=== PATIENT | male | born 1960 | race Caucasian/White ===

== ENCOUNTER 2022-08-11 08:19 | Emergency (ER) | payer SELFPAY ==
[2022-08-11] VITALS (10 sets, daily range): BP systolic 155–231; BP diastolic 83–150; PULSE 61–97; RESP 15–23; TEMP 35.5–36.1; O2SAT 98–100; BMI 34.4
--- NOTE | 2022-08-11 08:31 | NURSING ---
NO OLD EKGS
--- NOTE | 2022-08-11 08:32 | CT_ITS ---
We are attempting to reach an attending provider to discuss findings. An addendum with communication details will be sent when the communication is complete. EXAM: CT HEAD WITHOUT INTRAVENOUS CONTRAST CLINICAL INDICATION: AMS TECHNIQUE: Multiple axial images were obtained of the head without intravenous contrast. This CT exam was performed using one or more of the following dose reduction techniques: automated exposure control, adjustment of the mA and/or kV according to patient size, and/or use of iterative reconstruction technique. This report was created using [employer] report [employer] technology. COMPARISON: None. FINDINGS: BRAIN AND EXTRA-AXIAL SPACES: 5.8 cm hemorrhage noted with epicenter within the left basal ganglia associated with midline shift to the right of 18 mm. Hemorrhage extends into dilated lateral ventricles as well as into the third and fourth ventricles. The subfalcine herniation results in obstructive hydrocephalus of the lateral ventricles. There is preservation of the mckinnon/white matter interface. BONES/JOINTS: No suspicious lytic or blastic abnormality. SINUSES: No acute sinusitis. MASTOID AIR CELLS: Normal. Clear. ORBITS: Visualized globes, extraocular muscles, optic nerves and retrobulbar fat appear unremarkable. CT/Brain/Head without Contrast IMPRESSION: Large left basal ganglion hemorrhage with extensive involvement of the ventricles. Marked subfalcine herniation with midline shift to the right of 18 mm resulting in obstructive hydrocephalus. Electronically Signed: Giovanni Desai MD at 9:22 EST ,
--- NOTE | 2022-08-11 08:34 | RAD_ITS ---
EXAM: XR CHEST, 1 VIEW CLINICAL INDICATION: Intubation TECHNIQUE: Frontal view of the chest. This report was created using [employer] report generation technology. COMPARISON: None. FINDINGS: LUNGS AND PLEURAL SPACES: Mild airspace opacification within the right upper lobe may represent pneumonia or aspiration. No pneumothorax. No effusion. HEART: Heart is normal size. MEDIASTINUM: No mediastinal or hilar mass. BONES/JOINTS: No acute abnormality. SOFT TISSUES: Normal. VASCULATURE: Aorta is ectatic and tortuous. TUBES, LINES AND DEVICES: The endotracheal tube (ETT) is in satisfactory position with tip 4.6 cm above the fahad. Enteric tube tip is not seen but is below the diaphragm. RAD/Chest 1 View (Portable) IMPRESSION: Satisfactory ET tube placement. Small focus of pneumonia/aspiration right upper lobe of the lung. Electronically Signed: Giovanni Desai MD at 9:28 EST ,
--- NOTE | 2022-08-11 08:34 | RAD_ITS ---
EXAM: XR ABDOMEN, 1 VIEW CLINICAL INDICATION: NG Insertion TECHNIQUE: Frontal supine view of the abdomen/pelvis. This report was created using [employer] report generation technology. COMPARISON: None. FINDINGS: GASTROINTESTINAL TRACT: Prominent gaseous distention of the stomach likely related to intubation. ORGANS: No organomegaly. BONES/JOINTS: Question small bilateral renal stones. SOFT TISSUES: No pathological calcification. TUBES, LINES AND DEVICES: Enteric tube extends into the stomach. RAD/Abdomen Single View (Portable) IMPRESSION: Gastric distention related to intubation. Satisfactory endogastric tube placement. Electronically Signed: Giovanni Desai MD at 9:30 EST ,
--- NOTE | 2022-08-11 08:35 | EX.ED.DYSGE1 ---
HPI History of Present Illness Chief Complaint: Unresponsive Informant: EMS Narrative Narrative: Patient is a 61-year-old male with unknown medical history presenting from home for unresponsive. Patient was found on the bathroom floor. Apparently he lives with friends in the basement. He was last seen about 20 hours prior to arrival. He was found on the bathroom floor, unresponsive with a bleeding head wound in the back. EMS transferred patient here. Per EMS patient's blood sugar was 192. They did not notice any spontaneous movement. They immediately put him on a nonrebreather and has been 98% with spontaneous respirations. PFSH PFSH Social History Smoking Status: Unknown if ever smoked ROS ROS ED Review of Systems ROS Unobtainable: due to mental status EXAM Physical Exam Const Vital Signs: 08/11/22 08:20 08/11/22 08:25 08/11/22 08:54 Temperature 96.4 F L 96 F L Temperature Source Temporal Core Pulse Rate 97 61 Respiratory Rate 22 H 15 Respiratory Pattern Blood Pressure 231/137 H 183/112 H Blood Pressure Mean 168 135 Blood Pressure Source Blood Pressure Position Blood Pressure Location Pulse Ox 99 98 99 Oxygen Delivery Method Non-Rebreather Non-Rebreather Mechanical Ventilator Oxygen Flow Rate (L/min) 15 08/11/22 09:26 08/11/22 09:28 08/11/22 10:08 Temperature 96.8 F L Temperature Source Core Pulse Rate 65 66 Respiratory Rate 21 H 19 H Respiratory Pattern Blood Pressure 227/150 H 194/117 H Blood Pressure Mean 175 142 Blood Pressure Source Monitor Blood Pressure Position Supine Blood Pressure Location Right Arm Pulse Ox 100 99 99 Oxygen Delivery Method Mechanical Ventilator Mechanical Ventilator Mechanical Ventilator Oxygen Flow Rate (L/min) 08/11/22 10:19 08/11/22 10:28 08/11/22 08:29 Temperature 96.7 F L 96.9 F L Temperature Source Core Core Pulse Rate 69 75 71 Respiratory Rate 19 H 19 H 23 H Respiratory Pattern Normal Blood Pressure 181/100 H 165/92 H Blood Pressure Mean 127 116 Blood Pressure Source Monitor Blood Pressure Position Blood Pressure Location Pulse Ox 99 99 98 Oxygen Delivery Method Mechanical Ventilator Mechanical Ventilator Oxygen Flow Rate (L/min) Positive well nourished and well developed Constitutional Narrative: Acute distress, dried vomit on his face General Appearance ED: well developed HEENT Reports dry mucous membranes trauma Mouth ED: Yes dry mucous membranes Mouth: dry mucous membranes Eyes Eyes Narrative: Unequal pupils. Right pupil is 2 mm, minimally reactive. Left pupil is 3 mm and nonreactive Neck Neck Narrative: C-collar in place. No obvious deformity. Chest Wall inspection of chest normal Resp Resp Narrative: Slight tachypnea, clear breath sounds throughout. Cardio regular rate, regular rhythm and no murmurs GI normal to inspection, nondistended, normoactive bowel sounds Extremity Extremity Narrative: No obvious deformity. Pelvis is stable. Neuro Neuro Narrative: Patient intermittently will posterior the upper extremities with stimuli from intubation and IV. Nurses report that he did move his legs when Moon catheter was placed. [place] Coma Scale: document GCS findings None Extensor Response Incomprehensible 5 Skin Skin Narrative: Abrasion to the right knee. Abrasion to the left fifth toe. Abrasion to the posterior scalp. MDM MDM MDM Narrative Medical decision making narrative: Patient evaluated after found unresponsive on the ground. He has unequal pupils. GCS is 5 so airway secured with intubation prior to going over to imaging. He does not seem to be lateralizing with his neurologic exam except for the uneven pupils. See procedure note for intubation. Differential includes intracranial hemorrhage, ischemic stroke, rhabdomyolysis, head trauma encephalopathy. Patient is given 2 mg IV Narcan with no improvement of symptoms. Glucose was normal per EMS. Patient does have a leukocytosis, elevated CK, and elevation of his creatinine (unknown baseline) and an elevated troponin. He does not have acute ischemic/ACS changes however he does have some slight abnormalities in his T waves (biphasic) in V3. CT of the brain interpreted by myself as well as radiology does show basal ganglia on hemorrhage with ventricular extension as well as obstructing hydrocephalus and 18 mm shift to the right. [facility] transfer line is contacted and patient accepted as a trauma transfer to [facility] emergency room. Case discussed with transfer line, critical care transfer and accepting ER physician, Dr. Parker. Patient is ordered mannitol and is also administered hydralazine and placed on a Cardene drip for blood pressure control as well as signs of cerebral herniation. Tetanus is updated in the emergency room. Patient is given a liter of IV fluid. Lab Data Attestation: I reviewed the patient's lab results. Labs: Laboratory Results - last 24 hr 08/11/22 08/11/22 08/11/22 08:35 08:35 08:35 WBC 23.7 H RBC 5.40 Hgb 17.8 H Hct 51.3 MCV 95.0 H MCH 33.0 H MCHC 34.7 RDW Std Deviation 45.3 H RDW Coeff of Rachel 12.9 Plt Count 241 MPV 10.7 Immature Gran % (Auto) 0.500 Neut % (Auto) 87.0 H Lymph % (Auto) 4.2 L Taylor % (Auto) 8.2 Eos % (Auto) 0.0 Baso % (Auto) 0.1 Absolute Neuts (auto) 20.7 H Absolute Lymphs (auto) 0.99 Nucleated RBC % 0 Differential Comment SCANNED Diff Path Review May foll PT 13.9 INR 1.1 APTT 28.4 Sodium 140 Potassium 3.0 L Chloride 101 Carbon Dioxide 27.0 Anion Gap 12 BUN 20 H Creatinine 1.69 H Estim Creat Clear Calc 48.27 Est GFR (MDRD) Af Amer 53 L Est GFR (MDRD) Non-Af 44 L BUN/Creatinine Ratio 11.8 Glucose 141 H Lactic Acid Calcium 9.4 Total Bilirubin 0.90 AST 71 H ALT 29 Alkaline Phosphatase 88 Total Creatine Kinase 2310 H Troponin I High Sens 1214 H* Total Protein 8.2 Albumin 3.6 Globulin 4.6 H Albumin/Globulin Ratio 0.8 L Triglycerides Lipase 90 Urine Color Urine Clarity Urine pH Ur Specific [place] Urine Protein Urine Glucose (UA) Urine Ketones Urine Occult Blood Urine Nitrite Urine Bilirubin Urine Urobilinogen Ur Leukocyte Esterase Urine RBC Urine WBC Ur Squamous Epith Cells Urine Bacteria Urine Mucus Urine Opiates Screen Urine Methadone Screen Ur Barbiturates Screen Ur Phencyclidine Scrn Ur Amphetamines Screen MDMA (Ecstasy) Screen U Benzodiazepines Scrn Urine Cocaine Screen U Cannabinoids Screen Ur Drug Screen Comment Ethyl Alcohol 08/11/22 08/11/22 08/11/22 08:35 08:35 08:35 WBC RBC Hgb Hct MCV MCH MCHC RDW Std Deviation RDW Coeff of Rachel Plt Count MPV Immature Gran % (Auto) Neut % (Auto) Lymph % (Auto) Taylor % (Auto) Eos % (Auto) Baso % (Auto) Absolute Neuts (auto) Absolute Lymphs (auto) Nucleated RBC % Differential Comment Diff Path Review PT INR APTT Sodium Potassium Chloride Carbon Dioxide Anion Gap BUN Creatinine Estim Creat Clear Calc Est GFR (MDRD) Af Amer Est GFR (MDRD) Non-Af BUN/Creatinine Ratio Glucose Lactic Acid 5.8 H* Calcium Total Bilirubin AST ALT Alkaline Phosphatase Total Creatine Kinase Troponin I High Sens Total Protein Albumin Globulin Albumin/Globulin Ratio Triglycerides 70 Lipase Urine Color Urine Clarity Urine pH Ur Specific [place] Urine Protein Urine Glucose (UA) Urine Ketones Urine Occult Blood Urine Nitrite Urine Bilirubin Urine Urobilinogen Ur Leukocyte Esterase Urine RBC Urine WBC Ur Squamous Epith Cells Urine Bacteria Urine Mucus Urine Opiates Screen Urine Methadone Screen Ur Barbiturates Screen Ur Phencyclidine Scrn Ur Amphetamines Screen MDMA (Ecstasy) Screen U Benzodiazepines Scrn Urine Cocaine Screen U Cannabinoids Screen Ur Drug Screen Comment Ethyl Alcohol < 3.0 08/11/22 08/11/22 08:42 08:42 WBC RBC Hgb Hct MCV MCH MCHC RDW Std Deviation RDW Coeff of Rachel Plt Count MPV Immature Gran % (Auto) Neut % (Auto) Lymph % (Auto) Taylor % (Auto) Eos % (Auto) Baso % (Auto) Absolute Neuts (auto) Absolute Lymphs (auto) Nucleated RBC % Differential Comment Diff Path Review PT INR APTT Sodium Potassium Chloride Carbon Dioxide Anion Gap BUN Creatinine Estim Creat Clear Calc Est GFR (MDRD) Af Amer Est GFR (MDRD) Non-Af BUN/Creatinine Ratio Glucose Lactic Acid Calcium Total Bilirubin AST ALT Alkaline Phosphatase Total Creatine Kinase Troponin I High Sens Total Protein Albumin Globulin Albumin/Globulin Ratio Triglycerides Lipase Urine Color Yellow Urine Clarity Sl. Cloudy Urine pH 6.5 Ur Specific [place] 1.015 Urine Protein 500 H Urine Glucose (UA) Normal Urine Ketones 15 H Urine Occult Blood 250 H Urine Nitrite Negative Urine Bilirubin Negative Urine Urobilinogen Normal Ur Leukocyte Esterase Negative Urine RBC 25-50 SEEN Urine WBC 0 SEEN Ur Squamous Epith Cells 0 SEEN Urine Bacteria 0 SEEN Urine Mucus 0 SEEN Urine Opiates Screen NEGATIVE Urine Methadone Screen NEGATIVE Ur Barbiturates Screen NEGATIVE Ur Phencyclidine Scrn NEGATIVE Ur Amphetamines Screen NEGATIVE MDMA (Ecstasy) Screen NEGATIVE U Benzodiazepines Scrn NEGATIVE Urine Cocaine Screen NEGATIVE U Cannabinoids Screen NEGATIVE Ur Drug Screen Comment Ethyl Alcohol ABG Data ABG results: ABG 08/11/22 09:02 Specimen Type ART Sample Site L Brach pH 7.38 Bicarbonate Actual 25.8 Total CO2 27 Base Excess 1 O2 Saturation 97 O2 % 40 ABG pCO2 43.6 ABG pO2 98 Respiration Rate 14 O2 Delivery Device Adult Vent Vent Mode PRVC/PS Tidal Volume 450 POC PEEP 5 Radiography Diagnostic Testing: Clinical Impression(s) from Imaging Studies Brain CT 08/11/22 08:32 IMPRESSION: Large left basal ganglion hemorrhage with extensive involvement of the ventricles. Marked subfalcine herniation with midline shift to the right of 18 mm resulting in obstructive hydrocephalus. Electronically Signed: Giovanni Desai MD at 9:22 EST , ADDENDUM: 08/11/22 0929 IMPRESSION: Large left basal ganglion hemorrhage with extensive involvement of the ventricles. Marked subfalcine herniation with midline shift to the right of 18 mm resulting in obstructive hydrocephalus. N.B. : The above Results were Read Back by Giovanni Desai MD to Priscila Meza MD, and understanding confirmed on 08/11/2022 09:22:26 (ET). Electronically Signed: Giovanni Desai MD at 9:22 EST , Chest X-Ray 08/11/22 08:34 IMPRESSION: Satisfactory ET tube placement. Small focus of pneumonia/aspiration right upper lobe of the lung. Electronically Signed: Giovanni Desai MD at 9:28 EST , KUB X-Ray 08/11/22 08:34 IMPRESSION: Gastric distention related to intubation. Satisfactory endogastric tube placement. Electronically Signed: Giovanni Desai MD at 9:30 EST , Foot X-Ray 08/11/22 08:38 IMPRESSION: Healing fractures of the proximal and distal phalanges of the fifth toe. Marked osteoarthritic changes. Electronically Signed: Teto Dunbar, at 9:39 EST , Procedures Intubations Intubation Method: orotracheal (8-0 ET tube. Medicated with 20 mg of etomidate.) Intubation Verification: Positive color change Intubation Complications: no complications Critical Care Time Critical Care Time: Yes Critical care time (excluding procedures): 30-74 minutes (45), Discussing w/Consultants, Arranging Admission or Transfer and Performing Direct Patient Care at Bedside Discharge Plan Triage Chief Complaint: Unresponsive ED Provider: Priscila Meza Dx/Rx/DC Orders Clinical Impression: Intracranial hemorrhage, Acute non-ST elevation myocardial infarction (NSTEMI), Rhabdomyolysis, Creatinine elevation Primary Care Provider: Care Physician,No Primary Referrals: Care Physician,No Primary [Primary Care Provider] - Disposition Disposition: Acute Care Hospital Discharge Location: [facility]
--- NOTE | 2022-08-11 08:38 | RAD_ITS ---
STUDY: X-RAY - LEFT FOOT CLINICAL: Male, 61 years old. Trauma. Pain. TECHNIQUE: 3 view(s) of the foot. COMPARISON: None. FINDINGS: Osteopenia. Superior calcaneal spur. Mild arthrosis of the tibiotalar joint. Mild arthrosis of the subtalar joint. Mild arthrosis of the midfoot. [id number] arthrosis of the MTP and IP joints with marked hammertoe deformities. Healing fractures of the proximal and distal phalanges of the fifth toe. Lateral soft tissue swelling. Ossification of the proximal plantar fascia. RAD/Foot min 3 Views IMPRESSION: Healing fractures of the proximal and distal phalanges of the fifth toe. Marked osteoarthritic changes. Electronically Signed: Teto Dunbar, at 9:39 EST ,
[2022-08-11] MEDS: 0.9% Normal Saline 1,000 ML 1000 ML IV (08:48)
[2022-08-11] MEDS: Etomidate 20 MG/10 ML Vial IV (08:48)
[2022-08-11] MEDS: Diphth,Pertuss(Acell),Tet Vac 0.5 ML Vial IM (08:52)
[2022-08-11 08:53] LABS: Bacteria 0 SEEN /hpf (None Seen); Mucous, Urine 0 SEEN /hpf (<or=2+); Squamous Epithelial Cells - UA 0 SEEN /hpf (0-5); White Blood Cells 0 SEEN /hpf (0-5)
[2022-08-11 08:57] LABS: Absolute Lymphocyte Count 0.99 X10^3/uL (0.83-4.51); Absolute Neutrophil Count 20.7 X10^3/uL (2.0-7.7); Basophil# 0.03 X10^3/uL; Basophil% 0.1 % (0-1); Hematocrit 51.3 % (40-54); Hemoglobin 17.8 g/dL (13.0-16.5); Lymphocyte # 0.99 X10^3/ul (0.83-4.51); Lymphocyte % 4.2 % (19-41); Mean Corp Hgb Conc 34.7 g/dL (32-36); Mean Platelet Vol. 10.7 fl (6.2-12.0); Monocyte# 1.95 X10^3/uL; Monocyte% 8.2 % (0-10); NRBC Flagged by Analyzer 0 % (0-5); Neutrophil # 20.65 X10^3/uL (2.7-7.7); POSITIVE DIFFERENTIAL YES; Platelet Count 241 K/mm3 (150-450); RBC Distribution Width CV 12.9 % (11.6-14.6); RBC Distribution Width SD 45.3 fl (35.1-43.9); White Blood Count 23.7 K/mm3 (4.4-11.0)
[2022-08-11 08:57] LABS: Color, Urine Yellow (Yellow); Glucose, Dipstick Normal (Normal); Ketone-Dipstick 15 mg/dl (Negative); Leukocyte Esterase-Dipstick Negative /ul (Negative); Nitrite-Dipstick Negative (Negative); Occult Blood-Urine 250 /ul (Negative); Protein-Dipstick 500 mg/dl (Negative); Specific Gravity, Urine 1.015 (1.002-1.030); Urine Bilirubin Dipstick Negative (Negative); Urine Clarity Sl. Cloudy (Clear); Urine Urobilinogen Normal (Normal); Urine pH 6.5 (5.0 - 8.0)
[2022-08-11 09:00] LABS: Differential Indicated SCAN CRITERIA MET
[2022-08-11 09:02] LABS: International Normalized Ratio 1.1; Prothrombin Time (Protime)PT. 13.9 SECONDS (11.7-14.9)
[2022-08-11 09:03] LABS: Partial Thromboplast Time 28.4 Seconds (24.1-36.2)
[2022-08-11 09:03] LABS: Red Blood Cells-Urine 25-50 SEEN /hpf (0-5)
[2022-08-11 09:11] LABS: Base Excess 1 mmol/L (-2 to +2); Bicarbonate 25.8 mmol/L (22-26); Blood Gas Specimen Type ART; FI02 40; Mode PRVC/PS; O2 Delivery Device Adult Vent; PEEP 5; PO2 98 mmHG (75-100); RR 14; SITE L Brach; SO2 97 % (95-99); Total Carbon Dioxide 27 mmol/L; Vt 450; pCO2 43.6 mmHg (35-45); pH 7.38 (7.35-7.45)
[2022-08-11 09:16] LABS: Alcohol, Blood (Medical)-Serum < 3.0 mg/dL
[2022-08-11 09:34] LABS: Differential Comment SCANNED
[2022-08-11 09:39] LABS: Amphetamine Urine VISTA NEGATIVE (<1000 ng/mL); Barbiturate Urine VISTA NEGATIVE (< 200 ng/mL); Benzodiazepine Urine VISTA NEGATIVE (< 200 ng/mL); Cocaine Urine VISTA NEGATIVE (< 300 ng/mL); Ecstacy Urine VISTA NEGATIVE (< 500 ng/mL); Methadone Urine VISTA NEGATIVE (< 300 ng/mL); PCP Urine VISTA NEGATIVE (< 25 ng/mL); THC Urine VISTA NEGATIVE (< 50 ng/mL); Vista UDS pH Range 6
--- NOTE | 2022-08-11 09:41 | EKG12_ITS ---
Test Reason : UNRESP Blood Pressure : / mmHG Vent. Rate : 063 BPM Atrial Rate : 063 BPM P-R Int : 148 ms QRS Dur : 098 ms QT Int : 486 ms P-R-T Axes : 011 -01 066 degrees QTc Int : 497 ms Normal sinus rhythm Nonspecific ST and T wave abnormality Prolonged QT Abnormal ECG Confirmed by ALONDRA LOPEZ, RACHEL ([id number]), communications editor CLINTON TERRY ([id number]) on 08/16/2022 9:29:47 AM Referred By: Confirmed By:CHARLES CANTU MD
[2022-08-11 09:42] LABS: ALB/GLOB Ratio 0.8 RATIO (0.9-2.4); AST(SGOT) 71 U/L (15-37); Alanine Aminotransfer ALT/SGPT 29 U/L (16-61); Albumin, Serum 3.6 g/dL (3.2-5.0); Alkaline Phosphatase 88 U/L (45-117); Anion Gap 12 (5-15); BUN 20 mg/dL (7-18); BUN/Creat Ratio 11.8 RATIO (10-20); CPK Total, Creatine Kinase 2310 U/L (39-308); Calcium,Total 9.4 mg/dL (8.5-10.1); Chloride 101 mmol/L (98-107); Creatinine, Serum 1.69 mg/dL (0.70-1.30); EST Glomerular Filtration Rate 44 mL/min (>60); Est Glom Filt Rate - Afr Amer 53 mL/min (>60); Estimated Creatinine Clearance 48.27 ml/min; Globulin 4.6 g/dL (2.2-4.2); Glucose 141 mg/dL (74-106); Lactic Acid 5.8 mmol/L (0.4-1.9); Lipase 90 U/L (73-393); Protein, Total 8.2 g/dL (6.4-8.2); Sodium Level 140 mmol/L (136-145); Troponin-I HS 1214 pg/mL (3.0-78.0)
[2022-08-11 09:45] LABS: Triglycerides 70 mg/dL
--- NOTE | 2022-08-11 09:55 | CM.ED ---
TATO went on line in attempt to locate [facility] for patient. TATO noted that relative noted to be related to patient was Landy Muir but per on line she is . TATO called [facility] and spoke to dispatcher. Dispatcher said that patient is from [place] Patient was living with a roommate who was not related to him. Dispatch confirmed that patient was found at [address] [facility] [address]. TATO reviewed [facility] and [facility] web site for any additional information on patient. TATO called [facility]. TATO was provided with information from Martha Yan RN, which was provided to her from [facility] that patient has address, [address] in [place]. Farrah provide phone number [phone]. TATO contacted and spoke with Primo Alicea. Primo reports patient had been living with him and his for a few months. TATO asked Primo about any family and Primo said that he is not aware of any family and patient never talked about family as he was personal. Primo said patient never talked about aunts, uncles. SW asked about if patient had any brothers and Primo said no. Primo said that patient has been staying with him and his , Sylvia, and goes back between their house and a friend's house in [place]. Primo said that he does not know the name of the friend that patient resides with in [facility]. Primo said that his will try to get into patient's phone tonight and call his friend and see if they can get any information and also update the friend. TATO provided Primo with the ED phone number and advised him to call in with any additional information. Primo verbalized understanding. Pirmo said that patient's mom had and she was the last family member for patient and since she patient has been drifting around. Primo said that patient had previously resided on [address], in [place], but when patient's mother patient sold the house. Primo said that patient is his own guardian. Primo said that he does not think patient has medicare or medicaid. 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 Primo said that patient's birthday is one month after mine and stated that patient's birthday is [birth year] but was unsure the year. (TATO updated Elizabeth in Registration about patient's birthday). TATO called [facility] and left voice mail for Osvaldo requesting call back.
[2022-08-11] MEDS: Nicardipine HCl-0.9% Sod Chlor 20 MG/200 ML IV.SOLN 50 MG CONT INF (10:08)
[2022-08-11] MEDS: hydrALAZINE 20 MG/ML Vial IV (10:08)
[2022-08-11 12:49] LABS: Reflex Lactate? Y
--- NOTE | 2022-08-11 12:56 | CM.ED ---
Osvaldo from [facility] called. She has no involvement with patient. Margo ISRAEL
--- NOTE | 2022-08-11 13:23 | CM.ED ---
TATO received call from Sylvia Alicea. Patient has been living with Sylvia and her prior to his presentation to the ED today. Sylvia said that she understands she is not next of kin or family however, she inquired as to how patient is doing. TATO related that patient is critical and transferred to [facility]. Sylvia said that she has patient's phone and wanted to ensure he had the phone. TATO encouraged Sylvia to call [facility] and speak to social workers and update them on her involvement with patient. TATO provided Sylvia with the phone number for [facility]. Margo ISRAEL
[2022-08-12 09:23] LABS: Pathologist Review Reviewed
== END 2022-08-11 10:41 | disposition short-term general hospital (02) ==
PROVIDERS: Emergency Provider Emergency Medicine; Visit Provider Emergency Medicine
DX: I62.9 Nontraumatic intracranial hemorrhage, unspecified (principal); G93.5 Compression of brain; G91.1 Obstructive hydrocephalus; I21.4 Non-ST elevation (NSTEMI) myocardial infarction; M62.82 Rhabdomyolysis; X58.XXXA Exposure to other specified factors, initial encounter; R79.89 Other specified abnormal findings of blood chemistry
CPT/HCPCS: 31500; 31720; 36600; 51702; 70450; 71045; 73630; 74018; 80053; 80307; 81001; 82077; 82550; 82803; 83605; 83690; 84478; 84484; 85025; 85610; 85730; 87070; 87077; 87186; 87205; 87811; 90715; 93005; 94002; 96361; 96365; 96368; 96375; 99252; 99285; J7030; A4216; G0463